=== PATIENT | male | born 1995 | race Caucasian/White ===

== ENCOUNTER 2019-04-25 16:46 | Emergency (ER) | payer BC ==
[2019-04-25] MEDS ORDERED: SULFAMETHOX-TMP 800-160MG 1 EACH TAB PO STA (17:59)
[2019-04-25] MEDS ORDERED: SULFAMETH-TMP DS STARTER PACK 2 TAB BTL PO STA (17:59)
[2019-04-25 18:11] VITALS: TEMP 98.4
--- NOTE | 2019-04-25 18:38 | ED ---
General Adult HPI - General Chief complaint: Skin/Abscess/Foreign Body Stated complaint: Cyst on tailbone Time Seen by Provider: 04/25/19 17:27 Source: patient, RN notes reviewed, old records reviewed Mode of arrival: ambulatory Limitations: no limitations - History of Present Illness Initial comments: 24-year-old male patient in CDU chief complaint of pilonidal abscess for approximately 3 days. Patient reports that he has never had this before. Patient has a history of abscesses. Patient denies any other complaints. Denies any fevers chills, nausea vomiting or diarrhea. Systemic: Pt denies fatigue, fever/chills, rash. Pt denies weakness, night sweats, weight loss. Neuro: Pt denies headache, visual disturbances, syncope or pre-syncope. HEENT: Pt denies ocular discharge or irritation, otalgia, rhinorrhea, pharyngitis or notable lymphadenopathy. Cardiopulmonary: Pt denies chest pain, SOB, heart palpitations, dyspnea on exertion. Abdominal/GI: Pt denies abdominal pain, n/v/d. : Pt denies dysuria, burning w/ urination, frequency/urgency. Denies new onset urinary or bowel incontinence. MSK: Pt denies myalgia, loss of strength or function in extremities. Neuro: Pt denies new onset weakness, paresthesias. - Related Data Home Medications Medication Instructions Recorded Confirmed Ibuprofen [Motrin Ib] 1,000 mg PO DAILY PRN 04/25/19 04/25/19 Previous Rx's Medication Instructions Recorded Sulfamethox-Tmp 800-160Mg [Bactrim 2 tab PO Q12HR 7 Days #14 tab 04/25/19 DS 800-160 mg] Allergies Allergy/AdvReac Type Severity Reaction Status Date / Time No Known Allergies Allergy Verified 04/25/19 17:49 Review of Systems ROS Statement: Those systems with pertinent positive or pertinent negative responses have been documented in the HPI. ROS Other: All systems not noted in ROS Statement are negative. Past Medical History Past Medical History: No Reported History History of Any Multi-Drug Resistant Organisms: None Reported Past Surgical History: No Surgical Hx Reported Past Psychological History: No Psychological Hx Reported Smoking Status: Never smoker Past Alcohol Use History: None Reported Past Drug Use History: None Reported General Exam - General Exam Comments Initial Comments: Constitutional: NAD, AOX3, Pt has pleasant affect. HEENT: NC/AT, trachea midline, neck supple, no lymphadenopathy. Posterior pharynx non erythematous, without exudates. External ears appear normal, without discharge. Mucous membranes moist. Eyes PERRLA, EOM intact. There is no scleral icterus. No pallor noted. Cardiopulmonary: RRR, no murmurs, rubs or gallops, no JVD noted. Lungs CTAB in anterior and posterior vincent. No peripheral edema. Abdominal exam: Abdomen soft and non-distended. Abdomen non-tender to palpation in all 4 quadrants. Bowel sounds active in LLQ. No hepatosplenomegaly. No ecchymosis Neuro: CN II-XII grossly intact. No nuchal rigidity. No raccon eyes, no saul sign, no hemotympanum. No cervical spinal tenderness. MSK: No posterior calf tenderness bilaterally, homans sign negative bilaterally. Posterior tibialis and radial pulse +2 bilaterally. Sensation intact in upper and lower extremities. Full active ROM in upper and lower extremities, 5/5 stregnth. Derm: Pilonidal abscess approximately 4 x 4 centimeters in intergluteal cleft. Incision and drainage performed displayed pus. No involvement to the rectum. Limitations: no limitations Course Vital Signs 04/25/19 04/25/19 16:52 18:09 Temperature 99.9 F H 98.4 F Pulse Rate 122 H Respiratory 20 Rate Blood Pressure 146/88 O2 Sat by Pulse 100 Oximetry Medical Decision Making - Medical Decision Making 24-year-old male patient presents in ED with chief complaint of pilonidal abscess for approximately 3 days. Patient reports that he has never had this before. Patient denies a history of abscesses. Patient denies any other complaints. Denies any fevers chills, nausea vomiting or diarrhea. Pt VSS, afebrile. Physical exam displayed: Pilonidal abscess approximately 4 x 4 centimeters in intergluteal cleft. Incision and drainage performed displayed pus. Patient will be discharged with primary care follow-up. Patient will be given surgery referral if symptoms worsen or for cardiac disease. Case discussed with Dr. Ritter. Disposition Clinical Impression: Pilonidal abscess Disposition: HOME SELF-CARE Condition: Stable Instructions (If sedation given, give patient instructions): Abscess Incision and Drainage (ED), Abscess (ED) Additional Instructions: Patient to adhere to previously discussed treatment plan and will take m edication(s) as directed. Patient to follow up with PCP in 1-2 days. Patient to return to ED if symptoms do not improve. Take medication as directed. Follow-up with primary care provider tomorrow. If symptoms worsen any way or for recurrent abscess follow-up with general surgeon. Prescriptions: Sulfamethox-Tmp 800-160Mg [Bactrim DS 800-160 mg] 2 tab PO Q12HR 7 Days #14 tab Is patient prescribed a controlled substance at d/c from ED?: No Referrals: None,Stated [Primary Care Provider] - 1-2 days Fabian Martínez MD [STAFF PHYSICIAN] - 1-2 days [facility] [NON-STAFF] - 1-2 days
[2019-04-25 19:04] VITALS: BP 117/65; PULSE 92; RESP 16
== END 2019-04-25 19:03 | disposition home or self-care (01) ==
LOC: EC 16:46
DX: L05.01 Pilonidal cyst with abscess (principal)
CPT/HCPCS: 10080; 87070; 87205; 99283

== ENCOUNTER 2019-10-07 16:01 | Emergency (ER) | payer BC ==
[2019-10-07] MEDS ORDERED: IBUPROFEN 600 MG TAB PO STA (16:16)
[2019-10-07] MEDS ORDERED: ACETAMINOPHEN TAB 500 MG TAB PO STA (16:16)
[2019-10-07 16:28] VITALS: RESP 18
[2019-10-07] MEDS ORDERED: SODIUM CHLORIDE 0.9% 1,000 ML IV ONE (16:47)
[2019-10-07] MEDS ORDERED: SODIUM CHLORIDE 0.9% 1,000 ML IV SCH (17:00)
--- NOTE | 2019-10-07 17:04 | ED ---
Fever HPI - General Chief Complaint: Fever Stated Complaint: flu symptoms & syncope Time Seen by Provider: 10/07/19 16:15 Source: patient, RN notes reviewed, old records reviewed Mode of arrival: ambulatory Limitations: no limitations - History of Present Illness Initial Comments: This Patient is a 24-year-old male who presents emergency department today when she went flulike symptoms cough congestion fever. Patient was at that office today when he felt lightheaded and he stood up. Patient reports the fell head his head. He has some bruising around the right eyebrow. The Patient passed out he did hit his head and did have positive loss of consciousness for a few minutes according to mother. Otherwise is healthy and denies any significant [facility] medical history. Denies any chest pain or shortness of breath. Patient reports his been exposed to his siblings with influenza. - Related Data Home Medications Medication Instructions Recorded Confirmed Ibuprofen [Motrin Ib] 1,000 mg PO DAILY PRN 04/25/19 04/25/19 Previous Rx's Medication Instructions Recorded Sulfamethox-Tmp 800-160Mg [Bactrim 2 tab PO Q12HR 7 Days #14 tab 04/25/19 DS 800-160 mg] Allergies Allergy/AdvReac Type Severity Reaction Status Date / Time No Known Allergies Allergy Verified 10/07/19 16:13 Review of Systems ROS Statement: Those systems with pertinent positive or pertinent negative responses have been documented in the HPI. ROS Other: All systems not noted in ROS Statement are negative. Past Medical History Past Medical History: No Reported History History of Any Multi-Drug Resistant Organisms: None Reported Past Surgical History: No Surgical Hx Reported Past Psychological History: No Psychological Hx Reported Smoking Status: Never smoker Past Alcohol Use History: None Reported Past Drug Use History: None Reported General Exam - General Exam Comments Initial Comments: 24-year-old male. Alert and oriented 3. Patient appears and no significant discomfort. Limitations: no limitations General appearance: alert Head exam: Present: atraumatic, normocephalic, normal inspection, other (bruising on L eyebrow) Eye exam: Present: normal appearance, PERRL, EOMI. Absent: scleral icterus, conjunctival injection, periorbital swelling ENT exam: Present: normal exam, mucous membranes moist Neck exam: Present: normal inspection. Absent: tenderness, meningismus, lympha denopathy Respiratory exam: Present: normal lung sounds bilaterally, other (occasional cough) Cardiovascular Exam: Present: regular rate, normal rhythm, normal heart sounds. Absent: systolic murmur, diastolic murmur, rubs, gallop, clicks GI/Abdominal exam: Present: soft, normal bowel sounds. Absent: distended, tenderness, guarding, rebound, rigid Back exam: Present: normal inspection Neurological exam: Present: alert, oriented X3, CN II-XII intact Expanded Patient oriented to: Present: person, place, time Speech: Present: fluid speech Cranial nerves: EOM's Intact: Normal Cerebellar function: Finger to Nose: Normal Upper motor neuron: Pronator Drift: Normal Sensory exam: Upper Extremity Light Touch: Normal, Lower Extremity Light Touch: Normal Motor strength exam: RUE: 5, LUE: 5, RLE: 5, LLE: 5 Eye Response: (4) open spontaneously Motor Response: (6) obeys commands Verbal Response: (5) oriented [place] Total: 15 Psychiatric exam: Present: normal affect, normal mood Skin exam: Present: warm, dry, intact, normal color. Absent: rash Course Vital Signs 10/07/19 10/07/19 10/07/19 16:08 16:26 17:21 Temperature 101.3 F H 100.1 F H Pulse Rate 118 H 95 Respiratory 20 18 18 Rate Blood Pressure 130/83 114/81 O2 Sat by Pulse 99 95 Oximetry Medical Decision Making - Medical Decision Making 24-year-old male presents emergency department today after syncopal episode, hitting his head with positive loss of consciousness. Patient has been having cough congestion sinus pressure for the past few days. Patient is positive for influenza B. At this time patient's blood work was reviewed and unremarkable. EKG is normal. He has no acute neurological findings. Does have some minor bruising over the left eyebrow. Patient had a CT of the brain without contrast showing a punctate 4 mm density on the left relief of the tentorium cerebella. Small stoke us of subarachnoid bleed versus unusual gait location for dural calcification. Patient was informed of these results and discuss transfer to higher level of care [facility] for concern for subarachnoid bleed. Again he has no acute neurological deficits resting comfortably in bed. Patient's family is agreeable to this plan and Patient will be transferred at this time. I discussed the case with Dr. Jama who accepts transfer. - Lab Data Result diagrams: 10/07/19 17:20 10/07/19 17:20 Lab Results 10/07/19 10/07/19 10/07/19 Range/Units 16:15 17:20 17:20 WBC 7.3 (3.8-10.6) k/uL RBC 6.22 H (4.30-5.90) m/uL Hgb 16.3 (13.0-17.5) gm/dL Hct 50.0 (39.0-53.0) % MCV 80.4 (80.0-100.0) fL MCH 26.2 (25.0-35.0) pg MCHC 32.5 (31.0-37.0) g/dL RDW 13.5 (11.5-15.5) % Plt Count 276 (150-450) k/uL Neutrophils % 79 % Lymphocytes % 10 % Monocytes % 7 % Eosinophils % 1 % Basophils % 1 % Neutrophils # 5.8 (1.3-7.7) k/uL Lymphocytes # 0.7 L (1.0-4.8) k/uL Monocytes # 0.5 (0-1.0) k/uL Eosinophils # 0.1 (0-0.7) k/uL Basophils # 0.1 (0-0.2) k/uL Sodium 137 (137-145) mmol/L Potassium 4.7 (3.5-5.1) mmol/L Chloride 104 (98-107) mmol/L Carbon Dioxide 20 L (22-30) mmol/L Anion Gap 13 mmol/L BUN 11 (9-20) mg/dL Creatinine 0.78 (0.66-1.25) mg/dL Est GFR (CKD-EPI)AfAm >90 (>60 ml/min/1.73 sqM) Est GFR (CKD-EPI)NonAf >90 (>60 ml/min/1.73 sqM) Glucose 92 (74-99) mg/dL Calcium 9.3 (8.4-10.2) mg/dL Total Bilirubin 0.5 (0.2-1.3) mg/dL AST 39 (17-59) U/L ALT 23 (4-49) U/L Alkaline Phosphatase 64 (38-126) U/L Total Protein 8.0 (6.3-8.2) g/dL Albumin 4.7 (3.5-5.0) g/dL Influenza Type A RNA Not Detected (Not Detectd) Influenza Type B (PCR) Detected H (Not Detectd) 10/07/19 17:04 EKG shows normal sinus rhythm normal ECG. Ventricular rate 99 bpm.. Intervals 142 ms. QRS ration is 82 ms. QTQTC 3-400 ms. - Radiology Data Radiology results: report reviewed Equivocal finding of a punctate 4 mm density in the left leaf to the tentorium cerebeli a small focus of subarachnoid blood vs unusual location of the dystrophic dural calcification. Follow-up is indicated. Otherwise no acute intracranial body seen. Severe chronic right maxillary sinus disease. Chest x-ray shows no focal infiltrate to suggest pneumonia. Read by Dr. Montenegro. Disposition Clinical Impression: Abnormal CT of brain, Subarachnoid bleed, Influenza B Disposition: ADMITTED IP TO THIS HOSP Condition: Stable Is patient prescribed a controlled substance at d/c from ED?: No Referrals: None,Stated [Primary Care Provider] - 1-2 days Time of Disposition: 18:39
[2019-10-07 17:24] VITALS: TEMP 100.1
[2019-10-07 17:58] LABS: Basophils # (A) 0.1 k/uL (0-0.2); Basophils % (A) 1 %; Eosinophils # (A) 0.1 k/uL (0-0.7); Eosinophils % (A) 1 %; HGB 16.3 gm/dL (13.0-17.5); Lymphocytes # (A) 0.7 k/uL (1.0-4.8); Lymphocytes % (A) 10 %; MCH 26.2 pg (25.0-35.0); MCHC 32.5 g/dL (31.0-37.0); MCV 80.4 fL (80.0-100.0); Monocytes # (A) 0.5 k/uL (0-1.0); Monocytes % (A) 7 %; Neutrophils # (A) 5.8 k/uL (1.3-7.7); Neutrophils % (A) 79 %; Platelet Count 276 k/uL (150-450); RBC 6.22 m/uL (4.30-5.90); RDW 13.5 % (11.5-15.5); WBC 7.3 k/uL (3.8-10.6)
[2019-10-07 18:09] LABS: ALT 23 U/L (4-49); AST 39 U/L (17-59); African American GFR (CKD) >90 (>60 ml/min/1.73 sqM); Albumin 4.7 g/dL (3.5-5.0); Alkaline Phosphatase 64 U/L (38-126); Anion Gap 13 mmol/L; Blood Urea Nitrogen 11 mg/dL (9-20); Calcium 9.3 mg/dL (8.4-10.2); Carbon Dioxide 20 mmol/L (22-30); Chloride 104 mmol/L (98-107); Glucose 92 mg/dL (74-99); Non-African American GFR(CKD) >90 (>60 ml/min/1.73 sqM); Potassium 4.7 mmol/L (3.5-5.1); Sodium 137 mmol/L (137-145); Total Bilirubin 0.5 mg/dL (0.2-1.3)
--- NOTE | 2019-10-07 18:16 | CT ---
EXAMINATION TYPE: CT brain wo con DATE OF EXAM: 10/07/2019 COMPARISON: None HISTORY: 24-year-old male Syncope with left frontal injury. Loss of consciousness. TECHNIQUE: Examination was done in axial plane without intravenous contrast. Coronal and sagittal r econstructions performed. CT DLP: 1109.4 mGycm Automated exposure control for dose reduction was used. FINDINGS: Punctate 4 mm density along the left leaf of the tentorium cerebelli, axial image 30 and sagittal andria ge 44. Otherwise, no other evidence of acute intracranial hemorrhage, acute ischemic changes, mass, mass-effect, or extra-axial fluid collection. There is no effacement of cerebral sulci or basal suba rachnoid cisterns. There is no hydrocephalus. There is no midline shift. Márquez-white matter distinc tion is preserved. Complete opacification of the right maxillary sinus. Mastoid air cells well pneumatized. Polyp or muc osal retention cyst right sphenoid sinus. Leftward nasal septal deviation. Orbits and globes appear i ntact. No calvarial fracture. IMPRESSION: 1. Equivocal finding. Punctate 4 mm density along the left leaf of the tentorium cerebelli. Small foc us of subarachnoid blood versus unusual location of dystrophic dural calcification. Follow-up as clin ically indicated. 2. Otherwise, no acute intracranial abnormality seen. 3. Severe chronic right maxillary sinus disease. Impression #[address] Green in the ER at 6:10 PM.
--- NOTE | 2019-10-07 18:18 | XR ---
EXAMINATION TYPE: XR chest 2V DATE OF EXAM: 10/07/2019 COMPARISON: None HISTORY: 24-year-old male syncope TECHNIQUE: PA and lateral views FINDINGS: Heart normal size. Patient obliqued towards the left. Aorta and pulmonary vasculature within normal l imits. No consolidation or pleural effusion. IMPRESSION: No focal infiltrate to suggest pneumonia.
[2019-10-07 18:49] VITALS: BP 119/84; PULSE 98
== END 2019-10-07 18:59 | disposition other institution (70) ==
LOC: EC 16:01
DX: S06.6X1A Traumatic subarachnoid hemorrhage with loss of consciousness of 30 minutes or less, initial encounter (principal); J10.1 Influenza due to other identified influenza virus with other respiratory manifestations; S00.12XA Contusion of left eyelid and periocular area, initial encounter; W18.39XA Other fall on same level, initial encounter; Y92.59 Other trade areas as the place of occurrence of the external cause; Z53.8 Procedure and treatment not carried out for other reasons
CPT/HCPCS: 36415; 70450; 71046; 80053; 85025; 87502; 93005; 96360; 99285